=== PATIENT | male | born 1980 | race African-American/Black ===

== ENCOUNTER 2020-11-10 12:50 | Emergency (ER) | payer SELFPAY ==
[~2020-11-10] VITALS: Ht 20.3 cm; Wt 90.9 kg
[2020-11-10 13:34] LABS: URINE BILIRUBIN - DIPSTICK NEGATIVE (NEGATIVE); URINE BLOOD DIPSTICK TRACE-INTACT (NEGATIVE); URINE COLOR YELLOW; URINE GLUCOSE - DIPSTICK NEGATIVE (NEGATIVE); URINE KETONE NEGATIVE (NEGATIVE); URINE LEUK ESTERASE NEGATIVE (NEGATIVE); URINE NITRITE - DIPSTICK NEGATIVE (Negative); URINE PH 5.5 (4.5-8.0); URINE PROTEIN - DIPSTICK NEGATIVE (NEG-TRACE); URINE SPECIFIC GRAVITY >=1.030; URINE UROBILINOGEN - DIPSTICK 0.2 E.U./dL (0.2)
[2020-11-10 13:35] LABS: HEMOGLOBIN 14.3 g/dl (14.0-18.0); IMMATURE GRANULOCYTES 0.2 % (0.0-5.0); MEAN CELL VOLUME 88.1 fL CALC (80.0-100.0); MEAN CORPUSCULAR HGB CONC 31.8 g/dL CAL (32.0-36.0); NEUT# 2.49 thou/uL (1.82-7.42); RED BLOOD COUNT 5.11 mill/uL (4.70-6.10); RED CELL DISTRI WIDTH 12.4 % (11.5-15.5)
[2020-11-10 13:44] LABS: ALBUMIN 4.5 g/dL (3.2-5.0); ALKALINE PHOSPHATASE 87 u/l (38-126); ANION GAP 13 (6-22 (CALC)); BILIRUBIN, TOTAL 0.4 mg/dL (0.0-1.4); BUN 16 mg/dL (9-20); BUN/CREATININE RATIO 17 (12-20 (CALC)); CARBON DIOXIDE 28 mmol/l (22-30); CHLORIDE 101 mmol/l (95-108); GFR > 60 ML/MIN (>=60 (CALC)); GFR FOR AFR.AMER. > 60 ML/MIN (>=60 (CALC)); LIPASE 91 u/l (23-300); POTASSIUM 3.6 mmol/l (3.5-5.1); SGOT/AST 28 u/l (17-59); SODIUM 138 mmol/l (137-146)
[2020-11-10 13:46] LABS: ACT PARTIAL THROMBO TIME 22.8 SECONDS (20.0-32.5); PROTHROMBIN TIME 10.2 SECONDS (9.0-12.5)
[2020-11-10 15:40] VITALS: BP 151/73
[2020-11-10] MEDS ORDERED: PEPCID20 MG PO (15:57)
== END 2020-11-10 15:58 | disposition home or self-care (01) | DRG 392 ==
LOC: ED 12:50
PROVIDERS: Physician Assistant Surgical
DX: R10.9 Unspecified abdominal pain (principal)
CPT/HCPCS: Q9967

== ENCOUNTER 2020-11-17 12:00 | Emergency (ER) | payer SELFPAY ==
[~2020-11-17] VITALS: Ht 175.3 cm; Wt 90.9 kg
[~2020-11-17 12:00] MED LIST: PEPCID20 MG PO
[2020-11-17 14:13] VITALS: BP 150/80
== END 2020-11-17 14:14 | disposition home or self-care (01) | DRG 951 ==
LOC: ED 12:00
DX: Z20.2 Contact with and (suspected) exposure to infections with a predominantly sexual mode of transmission (principal)

== ENCOUNTER 2021-03-06 05:14 | Emergency (ER) | payer OTHER ==
[~2021-03-06] VITALS: Ht 175.3 cm; Wt 90.0 kg
[2021-03-06] MEDS ORDERED: IMODIUM2 MG PO (07:10)
[2021-03-06 07:22] VITALS: BP 136/86
== END 2021-03-06 07:22 | disposition home or self-care (01) | DRG 392 ==
LOC: ED 05:14
DX: R19.7 Diarrhea, unspecified (principal); Z20.822 Contact with and (suspected) exposure to COVID-19

== ENCOUNTER 2021-10-01 20:26 | Emergency (ER) | payer OTHER ==
[2021-10-01] VITALS (8 sets, daily range): BP systolic 153–192; BP diastolic 88–107
[~2021-10-01] VITALS: Ht 175.3 cm; Wt 90.0 kg
[~2021-10-01 20:26] MED LIST changes: +IMODIUM2 MG PO
[2021-10-01 21:30] LABS: HEMATOCRIT 41.2 % (39.0-50.0); HEMOGLOBIN 13.5 g/dl (14.0-18.0); IMMATURE GRANULOCYTES 0.1 % (0.0-5.0); MEAN CELL VOLUME 85.5 fL CALC (80.0-100.0); MEAN CORPUSCULAR HGB CONC 32.8 g/dL CAL (32.0-36.0); NEUT# 2.93 thou/uL (1.82-7.42); RED BLOOD COUNT 4.82 mill/uL (4.70-6.10); RED CELL DISTRI WIDTH 12.3 % (11.5-15.5)
[2021-10-01 21:48] LABS: ALBUMIN 4.2 g/dL (3.2-5.0); ALKALINE PHOSPHATASE 108 u/l (38-126); ANION GAP 10 (6-22 (CALC)); BUN 16 mg/dL (9-20); BUN/CREATININE RATIO 14 (12-20 (CALC)); CARBON DIOXIDE 31 mmol/l (22-30); CHLORIDE 99 mmol/l (95-108); CREATININE 1.1 mg/dL (0.7-1.3); GFR FOR AFR.AMER. > 60 ML/MIN (>=60 (CALC)); GFR OTHER RACES > 60 ML/MIN (>=60 (CALC)); SGOT/AST 28 u/l (17-59); SODIUM 137 mmol/l (137-146); TOTAL PROTEIN 7.5 g/dL (6.3-8.2)
[2021-10-01 21:50] LABS: BILIRUBIN, TOTAL 0.2 mg/dL (0.0-1.4)
[2021-10-01 22:19] LABS: TSH, 3RD GENERATION 6.32 uIU/mL (0.47 - 4.68)
[2021-10-01 23:02] LABS: URINE BILIRUBIN - DIPSTICK NEGATIVE (NEGATIVE); URINE BLOOD DIPSTICK NEGATIVE (NEGATIVE); URINE COLOR YELLOW; URINE GLUCOSE - DIPSTICK NEGATIVE (NEGATIVE); URINE KETONE NEGATIVE (NEGATIVE); URINE LEUK ESTERASE NEGATIVE (NEGATIVE); URINE PROTEIN - DIPSTICK NEGATIVE (NEG-TRACE); URINE SPECIFIC GRAVITY 1.025; URINE UROBILINOGEN - DIPSTICK 0.2 E.U./dL (0.2)
[2021-10-01 23:04] LABS: URINE NITRITE - DIPSTICK NEGATIVE (Negative)
[2021-10-01] MEDS ORDERED: LISINOP/HCTZ1 TA2 PO (23:10)
[2021-10-02] MEDS ORDERED: NORVASC5 M1 PO (08:41)
== END 2021-10-01 23:32 | disposition home or self-care (01) | DRG 305 ==
LOC: ED 20:26
PROVIDERS: Family Medicine
DX: I10 Essential (primary) hypertension (principal)